=== PATIENT | male | born 1935 | race Caucasian/White ===

== ENCOUNTER → 2017-06-23 | Outpatient (CLI) | payer BC ==
--- NOTE | ~2017-06-23 | XA30 ---
[facility] A Service of [facility] & [facility] RADIOLOGY TEXT RESULTS PATIENT: NAILA FIGUEROA LOCATION: [facility] : 35 UNIT #: [id number] AGE: [address]: Naila Urbina MD SEX: M ORDER DR: [id number] [facility] [address] [place], [place] [address] [id number] O MR#: [id number] Acc #: [id number] NAME: NAILA FIGUEROA : 1935 SEX: M STUDY DATE/TIME: 06/23/2017 11:01 UNIT: [facility] ROOM: STUDY DESCRIPTION: XA Arthrocentesis Major Joint Attending Physician: Naila Urbina M.D. Ordering Physician: Naila Urbina M.D. Primary Care Physician: Toño Vinson M.D. MEDICAL IMAGING REPORT This report is preliminary unless electronic signature is present EXAM Fluoroscopically-guided right hip joint injection with steroid and local anesthetic INDICATIONS 81-year-old male with osteoarthritis and right hip pain. FLUOROSCOPY The fluoroscopy time was 0.2 minutes. 1 fluoroscopic image was taken. Reference air kerma is 5 mGy. PROCEDURE Risks, benefits, alternatives of the procedure were discussed the patient informed consent was obtained. In the procedure room a time was performed confirming the correct patient and procedure. All elements of maximum sterile-barrier technique utilized according to guidelines appropriate for the procedure. TECHNIQUE/FINDINGS Skin overlying the right hip was prepped and draped in usual sterile fashion. 1% lidocaine utilized to anesthetize the skin and underlying subcutaneous tissues. Next under fluoroscopic guidance a 22-gauge needle was advanced into the right hip joint space. Next, 2 mL of 40 mg/mL of Depo-Medrol followed by 3 mL of bupivacaine was injected in the hip joint space. Needle was removed and a sterile dressing was applied. No immediate complications. Pre-procedure pain, 6 postprocedure pain 0. IMPRESSION Technically successful fluoroscopically-guided right hip joint injection with steroid and local anesthetic. Dictated by... Chad Godfrey M.D. [facility] A Service of [facility] & [facility] RADIOLOGY TEXT RESULTS PATIENT: NA[facility] FIGUEROA [id number] UNIT #: [id number] AGE: [address]: Naila Urbina MD SEX: M ORDER DR: THIS IS AN ELECTRONICALLY VERIFIED REPORT Chad Godfrey M.D. at 06/24/2017 10:28 AM ARS/tequila TD: 06/23/2017 19:14 JOB #: [id number] MEDICAL IMAGING REPORT Page 1 of 1 COPY
== END | disposition home or self-care (01) ==
LOC: CIVR 10:40
DX: M16.11 Unilateral primary osteoarthritis, right hip (principal)
CPT/HCPCS: 77002; J1030; Q9966